=== PATIENT | female | born 2000 | race Caucasian/White ===

== ENCOUNTER 2019-02-13 13:54 | Emergency (ER) | payer BC ==
[2019-02-13 15:48] LABS: ABS Lymphocytes 0.6 10^3/ul (1.0-4.8); ABS Monocytes 0.7 10^3/ul (0-0.8); ABS Neutrophils 10.8 10^3/ul (1.5-7.7); Hematocrit 39 % (35-47); Hemoglobin 13.4 g/dL (12.0-16.0); Lymphocyte % 4.9 %; Mean Corpuscular HGB Conc 35 g/dL (31-36); Mean Corpuscular Hemoglobin 31 pg (27-31); Mean Corpuscular Volume 89 fL (80-97); Mean Platelet Volume 7.5 fL (7.4-10.4); Platelet Count 215 10^3/uL (150-450); Red Blood Count 4.39 10^6 /uL (3.70-4.87); Red Cell Distribution Width 13 % (10-15); White Blood Count 12.1 10^3/uL (3.5-10.8)
[2019-02-13 16:16] LABS: ALT 10 U/L (7-52); AST 15 U/L (13-39); Albumin 4.7 g/dL (3.2-5.2); Albumin/Globulin Ratio 1.7 (1-3); Alkaline Phosphatase 38 U/L (34-104); Anion Gap 6 mmol/L (2-11); Blood Urea Nitrogen 17 mg/dL (6-24); CO2 Carbon Dioxide 27 mmol/L (22-32); Calcium 9.8 mg/dL (8.6-10.3); Chloride 106 mmol/L (101-111); EGFR African American 122.3 (>60); EGFR Non-African American 101.1 (>60); Globulin 2.8 g/dL (2-4); Glucose 118 mg/dL (70-100); HCG Pregnancy < 0.60 mIU/mL; Potassium 3.7 mmol/L (3.5-5.0); Sodium 139 mmol/L (135-145); Total Protein 7.5 g/dL (6.4-8.9)
--- NOTE | 2019-02-13 16:40 | ED ---
Syncope/Near Syncope - HPI Summary HPI Summary: Patient is a 18 y/o F presenting to [facility] with mother for syncopal episode. She states that she was at an orthopedic appointment for f/u visit for fractured bone in right hand earlier today when episode occurred. She states that she was standing in front of hedis abstractor desk when she had onset of room-spinning dizziness and nausea. Patient states that she had a syncopal episode subsequently. She states that she does not recall the fall. Mother had caught the patient and eased her to the floor. She estimates the patient had LOC for a few seconds and then came to. She denies CP, SOB and palpitations. Patient notes that she was diaphoretic after the episode. Patient notes that she has not eaten a lot today and states that she felt improved after crackers and fluid intake. Patient is reported to have had low vitals in ortho office, she was sent to [facility] for further evaluation. Patient notes LNMP was two weeks ago, she denies current or risk of . Patient denies recent long travel and any oral contraceptives. On triage, nothing is noted to aggravate/alleviate Sx. Home medications and allergies are reviewed. - History Of Current Complaint Chief Complaint: EDSyncope Time Seen by Provider: 02/13/19 16:05 Hx Obtained From: Patient Onset/Duration: Sudden Onset, Resolved Timing: Intermittent Episode Lasting Context: Witnessed, Loss Of Consciousness Activity At Onset: Other - standing Associated Head Trauma: No Aggravating Factor(s): Nothing Alleviating Factor(s): Other - crackers and fluids Associated Signs And Symptoms: Diaphoresis, Dizzy, Other - positive - nausea; negative - CP, SOB, and palpitations - Allergies/Home Medications Allergies/Adverse Reactions: Allergies Allergy/AdvReac Type Severity Reaction Status Date / Time No Known Allergies Allergy Verified 02/13/19 13:55 Home Medications: Home Medications NK [No Home Medications Reported] 02/13/19 [History Confirmed 02/13/19] PMH/Surg Hx/FS Hx/Imm Hx Sensory History: Denies: Hx Legally Blind, Hx Deafness Opthamlomology History: Denies: Hx Legally Blind EENT History: Denies: Hx Deafness Infectious Disease History: No Infectious Disease History: Denies: Traveled Outside the [place] in Last 30 Days - Family History Known Family History: Negative: Seizure Disorder - Social History Alcohol Use: Occasionally Substance Use Type: Reports: Marijuana Smoking Status (MU): Never Smoked Tobacco Review of Systems Positive: Skin Diaphoresis Negative: Palpitations, Chest Pain Negative: Shortness Of Breath Positive: Nausea Neurological: Other - positive - dizziness Positive: Syncope - LOC All Other Systems Reviewed And Are Negative: Yes Physical Exam - Summary Physical Exam Summary: VITAL SIGNS: Reviewed. GENERAL: Patient is a well-developed and nourished female who is lying comfortable in the stretcher. Patient is not in any acute respiratory distress. HEAD AND FACE: No signs of trauma. No ecchymosis, hematomas or skull depressions. No sinus tenderness. EYES: PERRLA, EOMI x 2, No injected conjunctiva, no nystagmus. EARS: Hearing grossly intact. Ear canals and tympanic membranes are within normal limits. MOUTH: Oropharynx within normal limits. NECK: Supple, trachea is midline, no adenopathy, no JVD, no carotid bruit, no c- spine tenderness, neck with full ROM. CHEST: Symmetric, no tenderness at palpation. LUNGS: Clear to auscultation bilaterally. No wheezing or crackles. CVS: Regular rate and rhythm, S1 and S2 present, no murmurs or gallops appreciated. ABDOMEN: Soft, non-tender. No signs of distention. No rebound, no guarding, and no masses palpated. Bowel sounds are normal. EXTREMITIES: FROM in all major joints, no edema, no cyanosis or clubbing. NEURO: Alert and oriented x 3. No acute neurological deficits. Speech is normal and follows commands. SKIN: Dry and warm. Triage Information Reviewed: Yes Vital Signs On Initial Exam: Initial Vitals Temp Pulse Resp BP Pulse Ox 99.4 F 88 18 104/65 97 02/13/19 13:56 02/13/19 13:56 02/13/19 13:56 02/13/19 13:56 02/13/19 13:56 Vital Signs Reviewed: Yes Diagnostics - Vital Signs Vital Signs Temp Pulse Resp BP Pulse Ox 02/13/19 13:56 99.4 F 88 18 104/65 97 - Laboratory Lab Results: Lab Results 02/13/19 02/13/19 Range/Units 15:41 15:41 WBC 12.1 H (3.5-10.8) 10^3/uL RBC 4.39 (3.70-4.87) 10^6 /uL Hgb 13.4 (12.0-16.0) g/dL Hct 39 (35-47) % MCV 89 (80-97) fL MCH 31 (27-31) pg MCHC 35 (31-36) g/dL RDW 13 (10-15) % Plt Count 215 (150-450) 10^3/uL MPV 7.5 (7.4-10.4) fL Neut % (Auto) 89.5 % Lymph % (Auto) 4.9 % Kemper % (Auto) 5.4 % Eos % (Auto) 0.0 % Baso % (Auto) 0.2 % Absolute Neuts (auto) 10.8 H (1.5-7.7) 10^3/ul Absolute Lymphs (auto) 0.6 L (1.0-4.8) 10^3/ul Absolute Monos (auto) 0.7 (0-0.8) 10^3/ul Absolute Eos (auto) 0.0 (0-0.6) 10^3/ul Absolute Basos (auto) 0.0 (0-0.2) 10^3/ul Absolute Nucleated RBC 0.0 10^3/ul Nucleated RBC % 0.0 Sodium 139 (135-145) mmol/L Potassium 3.7 (3.5-5.0) mmol/L Chloride 106 (101-111) mmol/L Carbon Dioxide 27 (22-32) mmol/L Anion Gap 6 (2-11) mmol/L BUN 17 (6-24) mg/dL Creatinine 0.74 (0.51-0.95) mg/dL Est GFR ( Amer) 122.3 (>60) Est GFR (Non-Af Amer) 101.1 (>60) BUN/Creatinine Ratio 23.0 H (8-20) Glucose 118 H (70-100) mg/dL Calcium 9.8 (8.6-10.3) mg/dL Magnesium 2.0 (1.9-2.7) mg/dL Total Bilirubin 0.80 (0.2-1.0) mg/dL AST 15 (13-39) U/L ALT 10 (7-52) U/L Alkaline Phosphatase 38 (34-104) U/L Troponin I 0.00 (<0.04) ng/mL Total Protein 7.5 (6.4-8.9) g/dL Albumin 4.7 (3.2-5.2) g/dL Globulin 2.8 (2-4) g/dL Albumin/Globulin Ratio 1.7 (1-3) TSH Pending Beta HCG, Quant < 0.60 mIU/mL Result Diagrams: 02/13/19 15:41 02/13/19 15:41 Lab Statement: Any lab studies that have been ordered have been reviewed, and results considered in the medical decision making process. - EKG 1402 Cardiac Rate: NL - rate of 82 BPM EKG Rhythm: Sinus Rhythm Summary of EKG Findings: EKG showed NSR with rate of 84 BPM, no ST elevations. There is a T-wave inversion in V3, but she has no delta waves. ED physician has reviewed and interpreted this EKG. Course/Dx Assessment/Plan: Patient is a 18 y/o F presenting to [facility] with mother for syncopal episode. She states that she was at an orthopedic appointment for f/u visit for fractured bone in right hand earlier today when episode occurred. She states that she was standing in front of hedis abstractor desk when she had onset of room-spinning dizziness and nausea. Patient states that she had a syncopal episode subsequently. She states that she does not recall the fall. Mother had caught the patient and eased her to the floor. She estimates the patient had LOC for a few seconds and then came to. She denies CP, SOB and palpitations. Patient notes that she was diaphoretic after the episode. Patient notes that she has not eaten a lot today and states that she felt improved after crackers and fluid intake. Patient is reported to have had low vitals in ortho office, she was sent to [facility] for further evaluation. Patient notes LNMP was two weeks ago, she denies current or risk of . Patient denies recent long travel and any oral contraceptives. Blood work without any significant abnormality except for WBC of 4.1, glucose 118. Beta hCG is negative for . EKG is a sinus rhythm without ST elevations. She has a T-wave inversion in V3. Has not delta waves. D-dimer is negative therefore no suspicion for pulmonary embolism. I believe the patient symptoms are secondary to vasovagal syncope. Therefore the patient will be discharged home with follow-up with primary care physician. Patient is hemodynamically stable alert and oriented 3. - Diagnoses Provider Diagnoses: Vasovagal syncope Discharge ED - Sign-Out/Discharge Documenting (check all that apply): Patient Departure - discharge Patient Received Moderate/Deep Sedation with Procedure: No - Discharge Plan Condition: Stable Disposition: HOME Patient Education Materials: Syncope (ED) Referrals: Fanny PURCELL,Timothy Dillard [Primary Care Provider] - 3 Days Additional Instructions: PLEASE RETURN TO THE EMERGENCY DEPARTMENT FOR ANY NEW OR WORSENING SYMPTOMS. PLEASE FOLLOW UP WITH YOUR PRIMARY CARE PHYSICIAN WITHIN THREE DAYS. - Attestation Statements Document Initiated by Scribe: Yes Documenting Scribe: MARC TAYLOR Provider For Whom Kayibe is Documenting (Include Credential): CARMEN ANDINO MD Scribe Attestation: I, MARC TAYLOR, scribed for CARMEN ANDINO MD on 02/13/19 at 1916. Status of Scribe Document: Ready
[2019-02-13 19:34] VITALS: BP 112/72
== END 2019-02-13 19:33 | disposition home or self-care (01) ==
LOC: ED 13:54
DX: R55 Syncope and collapse (principal)
CPT/HCPCS: 36415; 80053; 83605; 83735; 84443; 84484; 84702; 85025; 85379; 93005; 99283